=== PATIENT | female | born 1930 | race Caucasian/White ===

== ENCOUNTER 2019-07-05 17:06 | Inpatient (IN) | payer MEDICARE, OTHER ==
[~2019-07-05] VITALS: Ht 160 cm; Wt 68.7 kg
[2019-07-05] MEDS ORDERED: ATEN50 PO (21:49)
[2019-07-05] MEDS ORDERED: TRIM100 PO (21:50)
[2019-07-05] MEDS ORDERED: AMLODIPINE BESYL5 MG PO (21:50)
[2019-07-06 04:59] LABS: Hematocrit 35.7 % (33.0-51.0); Hemoglobin 11.5 g/dL (11.5-16.0); Mean Corpuscular HGB 30.9 pg (26.0-34.0); Mean Corpuscular HGB Conc 32.2 g/dL (31.5-36.5); Mean Corpuscular Volume 96 fL (80-100); Platelet Count 127 K/mm3 (150-400); RDW Coefficient Variation 12.1 % (11.7-14.2); RDW Standard Deviation 43.3 fL (35.1-46.3); Red Blood Cell Count 3.72 M/mm3 (3.80-5.20); White Blood Cell Count 15.35 K/mm3 (4.00-11.30)
[2019-07-06 05:00] LABS: Mean Platelet Volume 13.2 fL (9.1-12.4)
[2019-07-06 05:14] LABS: Alanine Aminotransfer (ALT/SGP 23 U/L (12-78); Albumin, Blood 2.9 g/dL (3.4-5.0); Alk Phos 40 U/L (50-136); Anion Gap 8 mmol/L (6-16); Aspartate Aminotrans (AST/SGOT 18 U/L (12-37); Bilirubin, Total 1.1 mg/dL (0.1-1.0); Blood Urea Nitrogen 15 mg/dL (8-24); Bun/Creatinine Ratio 19.6 (12.0-20.0); CO2, Blood 23 mmol/L (21-32); Chloride, Blood 103 mmol/L (98-108); Creatinine, Blood 0.77 mg/dL (0.40-1.00); Glomerular Filtration Rate >60 (60-); Glucose, Blood 129 mg/dL (70-99); Potassium, Blood 3.8 mmol/L (3.5-5.5); Sodium, Blood 134 mmol/L (136-145); Total Protein, Blood 5.9 g/dL (6.4-8.2)
--- NOTE | 2019-07-06 06:22 | NUR ---
SHIFT SUMMARY PATIENT ARRIVED TO THE UNIT AT 2320 ON 07/05/19. PATIENT ALERT AND ORIENTED, IS ABLE TO AMBULATE TO THE BATHROOM AND BACK WITH MINIMAL ASSISTANCE. THE IV IN HER RIGHT AC IS PATENT AND INFUSING WITH NORMAL SALINE AT 75 ML/HR. STOOL SAMPLE UNABLE TO BE OBTAINED PATIENT HAS NOT HAD A BOWEL MOVEMENT SINCE HER ADMIT. BED IN LOWEST POSITION WITH WHEELS LOCKED. CALL LIGHT WITHIN REACH. REPORT GIVEN TO ONCOMING RN.
[2019-07-06 13:39] LABS: Adenovirus F 40/41 Not Detected (NOT DETECT); Astrovirus Not Detected (NOT DETECT); Campylobacter Sp Not Detected (NOT DETECT); Cryptosporidium Not Detected (NOT DETECT); Cyclospora Cayetanensis Not Detected (NOT DETECT); E. Coli O157 Not Detected (NOT DETECT); Entamoeba Histolytica Not Detected (NOT DETECT); Enteroaggregative E. coli-EAEC Not Detected (NOT DETECT); Enteropathogenic E. coli-EPEC Not Detected (NOT DETECT); Enterotoxigenic E. coli-ETEC Not Detected (NOT DETECT); Giardia Lamblia Not Detected (NOT DETECT); Norovirus GI/GII Not Detected (NOT DETECT); Plesiomonas Shigelloides Not Detected (NOT DETECT); Rotavirus A Not Detected (NOT DETECT); Salmonella Sp Not Detected (NOT DETECT); Sapovirus Not Detected (NOT DETECT); Shiga Toxin-prod E. coli-STEC Not Detected (NOT DETECT); Shigella/Enteroin E. coli-EIEC Not Detected (NOT DETECT); Vibrio Cholerae Not Detected (NOT DETECT); Vibrio Sp Not Detected (NOT DETECT); Yersinia Enterocolitica Not Detected (NOT DETECT)
--- NOTE | 2019-07-06 18:46 | NUR ---
SHIFT SUMMARY. A&OX4, SBA WITH PERSONAL CANE TO BATHROOM, PT USES CALL LIGHT APPROPRIATELY AND IS AWARE OF LIMIATIONS. PT DENIES N/V, SOB. PT REPORTS MILD LLQ ABD PAIN THAT WAS MANAGED WELL WITH PRN APAP. PT CONSTIPATED DURING THE BEGINING OF THE SHIFT AND THEN HAD A HARD FORMED BM, PT LESS PAINFUL AFTERWARDS. PT THEN HAD THREE EPISODES OF DIARRHEA, PRN IMODIUM GIVEN. PT HAD ONE MORE BM OF DIARRHEA AND THEN NO OTHER BMS FOR THE REST OF THE SHIFT. GI PANEL NEGATIVE. FAMILY IN TO VISIT INTERMITTENTLY DURING THE SHIFT. NO NEW CHANGES OR CONCERNS.
--- NOTE | 2019-07-07 05:15 | NUR ---
SHIFT SUMMARY PATIENT SLEPT WELL ALL NIGHT. HAD NO COMPLAINTS OF PAIN. IV PATENT AND FLUSHED. BED IN LOWEST POSITION WITH WHEELS LOCKED. CALL LIGHT WITHIN REACH. REPORT GIVEN TO ONCOMING RN.
[2019-07-07 05:22] LABS: BASOPHILS ABSOLUTE AUTO 0.04 K/mm3 (0.00-0.23); BASOPHILS PERCENT AUTO 0 % (0-2); EOSINOPHILS ABSOLUTE AUTO 0.07 K/mm3 (0.00-0.68); EOSINOPHILS PERCENT AUTO 1 % (0-6); Hematocrit 35.4 % (33.0-51.0); Hemoglobin 11.2 g/dL (11.5-16.0); IMMATURE GRAN ABSOLUTE AUTO 0.04 K/mm3 (0.00-0.10); IMMATURE GRAN PERCENT AUTO 0 % (0-1); LYMPHOCYTES PERCENT AUTO 15 % (21-46); MONOCYTES ABSOLUTE AUTO 1.41 K/mm3 (0.16-1.47); MONOCYTES PERCENT AUTO 12 % (4-13); Mean Corpuscular HGB 30.8 pg (26.0-34.0); Mean Corpuscular HGB Conc 31.6 g/dL (31.5-36.5); Mean Corpuscular Volume 97 fL (80-100); NEUTROPHILS ABSOLUTE AUTO 8.61 K/mm3 (1.96-9.15); NEUTROPHILS PERCENT AUTO 72 % (41-73); Platelet Count 114 K/mm3 (150-400); RDW Coefficient Variation 12.5 % (11.7-14.2); RDW Standard Deviation 44.9 fL (35.1-46.3); Red Blood Cell Count 3.64 M/mm3 (3.80-5.20); White Blood Cell Count 11.97 K/mm3 (4.00-11.30)
[2019-07-07 05:49] LABS: Anion Gap 5 mmol/L (6-16); Blood Urea Nitrogen 11 mg/dL (8-24); Bun/Creatinine Ratio 14.2 (12.0-20.0); CO2, Blood 25 mmol/L (21-32); Calcium, Blood 8.2 mg/dL (8.5-10.1); Chloride, Blood 109 mmol/L (98-108); Creatinine, Blood 0.77 mg/dL (0.40-1.00); Glomerular Filtration Rate >60 (60-); Glucose, Blood 99 mg/dL (70-99); Potassium, Blood 3.9 mmol/L (3.5-5.5); Sodium, Blood 139 mmol/L (136-145)
--- NOTE | 2019-07-07 17:08 | NUR ---
TODAY IS HER BIRTHDAY. OTHER THAN ABDOMINAL TENDERNESS, SHE FEELS GOOD. SHE IS SLIGHTLY FORGETFUL. SHE IS PLEASANT AND AMBULTES WELL WITH HER CANE AND SBA. NO N/V. NO ABD PAIN EVEN THOUGH SHE EATS 100%. WBC'S DOWN TO ALMOST NORMAL. NO FEVER. SHE HAS HAD LOTS OF PHONE CALLS AND VISITORS FOR HER BIRTHDAY. PROBABLE DISCHARGE TOMORROW.
[2019-07-08 05:00] LABS: BASOPHILS ABSOLUTE AUTO 0.06 K/mm3 (0.00-0.23); BASOPHILS PERCENT AUTO 1 % (0-2); EOSINOPHILS ABSOLUTE AUTO 0.23 K/mm3 (0.00-0.68); EOSINOPHILS PERCENT AUTO 2 % (0-6); Hematocrit 36.2 % (33.0-51.0); Hemoglobin 11.6 g/dL (11.5-16.0); IMMATURE GRAN ABSOLUTE AUTO 0.04 K/mm3 (0.00-0.10); IMMATURE GRAN PERCENT AUTO 0 % (0-1); LYMPHOCYTES PERCENT AUTO 22 % (21-46); MONOCYTES ABSOLUTE AUTO 1.52 K/mm3 (0.16-1.47); MONOCYTES PERCENT AUTO 15 % (4-13); Mean Corpuscular HGB 30.8 pg (26.0-34.0); Mean Corpuscular Volume 96 fL (80-100); Mean Platelet Volume 12.8 fL (9.1-12.4); NEUTROPHILS ABSOLUTE AUTO 6.29 K/mm3 (1.96-9.15); NEUTROPHILS PERCENT AUTO 60 % (41-73); Platelet Count 126 K/mm3 (150-400); RDW Coefficient Variation 12.5 % (11.7-14.2); RDW Standard Deviation 44.1 fL (35.1-46.3); Red Blood Cell Count 3.77 M/mm3 (3.80-5.20); White Blood Cell Count 10.44 K/mm3 (4.00-11.30)
--- NOTE | 2019-07-08 05:13 | NUR ---
LAUNDRY CLERK SUMMARY NO ACUTE CHANGES THIS SHIFT. PT AAOX4 AND VERY PLEASANT. PT DENIES NAUSEA TONIGHT AND HAS NOT HAD A BM. CONTINUED ON IV ABX. TREATED FOR CHRONIC BACK PAIN X1 WITH TYLENOL AND PROVIDED PT WITH K PAD WELL. NEW IV PLACED AFTER INITIAL IV BEGAN LEAKING. VSS, WILL CONTINUE TO MONITOR.
[2019-07-08 05:16] LABS: Anion Gap 7 mmol/L (6-16); Blood Urea Nitrogen 12 mg/dL (8-24); Bun/Creatinine Ratio 14.8 (12.0-20.0); CO2, Blood 26 mmol/L (21-32); Calcium, Blood 8.3 mg/dL (8.5-10.1); Chloride, Blood 106 mmol/L (98-108); Creatinine, Blood 0.81 mg/dL (0.40-1.00); Glomerular Filtration Rate >60 (60-); Glucose, Blood 100 mg/dL (70-99); Potassium, Blood 3.7 mmol/L (3.5-5.5); Sodium, Blood 139 mmol/L (136-145)
[2019-07-08] MEDS ORDERED: ACET325 PO (10:25)
[2019-07-08] MEDS ORDERED: SIME80CH PO (10:27)
[2019-07-08] MEDS ORDERED: Vsl#3 Capsule1 EACH PO (10:27)
[2019-07-08] MEDS ORDERED: MIRALAX17 GM PO (10:27)
[2019-07-08] MEDS ORDERED: CIPR500 PO (10:27)
[2019-07-08] MEDS ORDERED: METR500 PO (10:28)
--- NOTE | 2019-07-08 15:37 | NUR ---
SHE DID NOT FEEL WELL THIS MORNING WHEN I ASSUMED CARE. SHE HAD ABD DISTENTION AND WAS CRAMPING SOME. INSPITE OF THAT SHE DID FEEL LIKE SITTING UP IN THE CHAIR FOR BREAKFAST AND ATE 100%. SHE WENT TO THE BATHROOM AFTERWARDS AND PASSED A SMALL HARD PIECE OF STOOL. SHE LATER SAT ON THE TOILET AGAIN BUT NO MORE BM. THE ROUNDED AND EXPLAINED IT MAY BE THE LAXATIVES SHE RECEIVED LAST NIGHT. SHE STILL PREFERRED TO GO HOME TODAY. NO NAUSEA. SHE RESTED, THEN SHOWERED. DC INSTRUCTIONS GIVEN TO HER DAUGHTERS AND HER AND SHE WAS DISCHARGED HOME AT 1255 AFTER LUNCH.
== END 2019-07-08 12:55 | disposition home or self-care (01) | DRG 392 ==
LOC: ER 17:06 → MEDS 17:07 → ENPENDDIS 07-08 11:24 → MEDS 07-08 12:55
PROVIDERS: Internal Medicine; ADMIT Internal Medicine
DX: K52.9 Noninfective gastroenteritis and colitis, unspecified (principal); K57.30 Diverticulosis of large intestine without perforation or abscess without bleeding; D69.6 Thrombocytopenia, unspecified; K59.00 Constipation, unspecified; I10 Essential (primary) hypertension; Z87.440 Personal history of urinary (tract) infections; Z66 Do not resuscitate
CPT/HCPCS: 0097U; 36415; 74176; 80048; 80053; 83605; 85025; 85027; 96361; 96365; 96366; 96367; 96372; 96375; 99285-25; A9270; G0378; J0696; J1650; J1956; J2405; J7030

== ENCOUNTER → 2019-07-05 | Outpatient (CLI) | payer MEDICARE, OTHER ==
[~2019-07-05] MED LIST: ACET325 PO; AMLODIPINE BESYL5 MG PO; ATEN50 PO; CIPR500 PO; METR500 PO; MIRALAX17 GM PO; SIME80CH PO; TRIM100 PO; Vsl#3 Capsule1 EACH PO
[2019-07-05 14:42] LABS: BASOPHILS ABSOLUTE AUTO 0.07 K/mm3 (0.00-0.23); BASOPHILS PERCENT AUTO 0 % (0-2); EOSINOPHILS ABSOLUTE AUTO 0.01 K/mm3 (0.00-0.68); EOSINOPHILS PERCENT AUTO 0 % (0-6); Hematocrit 42.7 % (33.0-51.0); Hemoglobin 13.7 g/dL (11.5-16.0); IMMATURE GRAN ABSOLUTE AUTO 0.12 K/mm3 (0.00-0.10); IMMATURE GRAN PERCENT AUTO 1 % (0-1); LYMPHOCYTES ABSOLUTE AUTO 0.64 K/mm3 (0.84-5.20); LYMPHOCYTES PERCENT AUTO 4 % (21-46); MONOCYTES ABSOLUTE AUTO 1.39 K/mm3 (0.16-1.47); MONOCYTES PERCENT AUTO 8 % (4-13); Mean Corpuscular HGB 30.8 pg (26.0-34.0); Mean Corpuscular HGB Conc 32.1 g/dL (31.5-36.5); Mean Corpuscular Volume 96 fL (80-100); Mean Platelet Volume 12.7 fL (9.1-12.4); NEUTROPHILS ABSOLUTE AUTO 16.31 K/mm3 (1.96-9.15); NEUTROPHILS PERCENT AUTO 88 % (41-73); Platelet Count 148 K/mm3 (150-400); RDW Coefficient Variation 12.2 % (11.7-14.2); Red Blood Cell Count 4.45 M/mm3 (3.80-5.20); White Blood Cell Count 18.54 K/mm3 (4.00-11.30)
[2019-07-05 15:05] LABS: Albumin, Blood 4.2 g/dL (3.4-5.0); Albumin/Globulin Ratio 1.4 (0.8-1.8); Bilirubin, Total 1.1 mg/dL (0.1-1.0); Bun/Creatinine Ratio 19.4 (12.0-20.0); Calcium, Blood 9.1 mg/dL (8.5-10.1); Creatinine, Blood 0.98 mg/dL (0.40-1.00); Potassium, Blood 4.5 mmol/L (3.5-5.5); Total Protein, Blood 7.2 g/dL (6.4-8.2)
== END | disposition home or self-care (01) ==
LOC: LAB EV 14:36 → LAB SHORT 14:36
PROVIDERS: Physician Assistant Medical
DX: R10.30 Lower abdominal pain, unspecified (principal)
CPT/HCPCS: 80053; 85025